=== PATIENT | female | born 2000 | race Hispanic/Latino ===

== ENCOUNTER 2020-11-15 16:29 | Emergency (ER) | payer SELFPAY ==
[~2020-11-15] VITALS: Ht 167.6 cm; Wt 117.9 kg
[2020-11-15 16:31] VITALS: BP 158/119
[2020-11-15] MEDS ORDERED: 0.9%NACL 1000ML 1,000 ML IV ONE (17:00)
[2020-11-15] MEDS ORDERED: ACETAMINOPHEN 500 MG TABLET PO ONE (17:00)
[2020-11-15 17:08] LABS: BASOPHILS % (AUTO) 0.6 % (0.0-5.0); EOSINOPHILS % (AUTO) 3.6 % (0.0-8.0); HEMATOCRIT 39.7 % (36-48); LYMPHOCYTES % (AUTO) 15.1 % (21.0-51.0); MEAN CORPUSCULAR HEMOGLOBIN 28.2 pg (27.0-33.0); MEAN CORPUSCULAR HGB CONC 32.5 g/dL (32.0-36.0); MEAN CORPUSCULAR VOLUME 86.9 fL (80-100); MONOCYTES % (AUTO) 14.7 % (3.0-13.0); NEUTROPHILS % (AUTO) 64.9 % (40.0-77.0); PLATELET COUNT (AUTO) 304 K/uL (130-400); RED BLOOD CELL COUNT(AUTO) 4.57 MIL/uL (4.00-5.50); RED CELL DISTRIBUTION WIDTH 13.4 % (11.0-15.5); WHITE BLOOD COUNT (AUTO) 6.4 K/uL (4.8-10.8)
[2020-11-15 17:16] LABS: CREATININE 0.7 mg/dL (0.5-1.5); POTASSIUM 3.7 mmol/L (3.5-5.1)
[2020-11-15 17:21] LABS: BILIRUBIN,TOTAL 0.2 mg/dL (0.2-1.0); TOTAL PROTEIN, SERUM 7.8 g/dL (6.0-8.3)
[2020-11-15 18:22] VITALS: BP 133/65
[2020-11-15 19:38] VITALS: BP 145/89
[2020-11-15 19:40] LABS: APPEARANCE,URINE Clear (CLEAR); BILIRUBIN,URINE Negative (NEGATIVE); COLOR,URINE Yellow (YELLOW); GLUCOSE, URINE (UA) Negative (NEGATIVE); KETONES,URINE Negative (NEGATIVE); LEUKOCYTE ESTERASE ,URINE Negative (NEGATIVE); NITRATE,URINE Positive (NEGATIVE); OCCULT BLOOD,URINE Small (NEGATIVE); PROTEIN,URINE Negative (NEGATIVE)
[2020-11-15 19:43] LABS: HCG,QUAL RESULT NEGATIVE (NEGATIVE)
[2020-11-15 19:47] LABS: BACTERIA,URINE Few /HPF (None Seen); RBC,URINE 0-1 /HPF (0-1); SQUAMOUS EPITHELIAL CELL,UR Few /HPF (0-2); WBC,URINE 0-1 /HPF (0-1)
[2020-11-15 19:48] LABS: COARSE GRANULAR CASTS,URINE 0-2 /LPF (None Seen)
[2020-11-15] MEDS ORDERED: ACET-2247 PO (20:02)
[2020-11-15] MEDS ORDERED: ALBUHFA IH (20:02)
[2020-11-15] MEDS ORDERED: IVER3TAB PO (20:02)
[2020-11-15] MEDS ORDERED: FLUT1DIS IH (20:02)
== END 2020-11-15 20:58 | disposition home or self-care (01) ==
LOC: EDH 16:29
DX: U07.1 COVID-19 (principal); B34.9 Viral infection, unspecified; Z79.51 Long term (current) use of inhaled steroids; Z79.899 Other long term (current) drug therapy
CPT/HCPCS: 36415; 71045; 80053; 81001; 81025; 84703; 85025; 87088; 87426; 87804 ×2; 96360; 99284; J7030

== ENCOUNTER 2020-12-16 00:46 | Emergency (ER) | payer OTHER, SELFPAY ==
[~2020-12-16] VITALS: Ht 177.8 cm; Wt 98.0 kg
[~2020-12-16 00:46] MED LIST: ACET-2247 PO; ALBUHFA IH; FLUT1DIS IH; IVER3TAB PO
[2020-12-16 01:48] VITALS: BP 141/87
[2020-12-16 04:07] VITALS: BP 125/87
[2020-12-16] MEDS ORDERED: METH4TAB3 PO (04:58)
[2020-12-16] MEDS ORDERED: SOLU-MEDROL 125MG VIAL IVP ONE (05:00)
== END 2020-12-16 05:20 | disposition home or self-care (01) ==
LOC: EDH 00:46
DX: M94.0 Chondrocostal junction syndrome [Tietze] (principal); E66.01 Morbid (severe) obesity due to excess calories; Z68.31 Body mass index [BMI] 31.0-31.9, adult; Z79.899 Other long term (current) drug therapy
CPT/HCPCS: 71045; 81025; 93005; 96374; 99285; J2930

== ENCOUNTER 2021-07-25 05:28 | Emergency (ER) | payer OTHER ==
[~2021-07-25] VITALS: Ht 165.1 cm; Wt 118.4 kg
[~2021-07-25 05:28] MED LIST changes: +METH4TAB3 PO
[2021-07-25 06:00] VITALS: BP 125/63
[2021-07-25 06:01] LABS: APPEARANCE,URINE Clear (CLEAR); BILIRUBIN,URINE Negative (NEGATIVE); COLOR,URINE Yellow (YELLOW); GLUCOSE, URINE (UA) Negative (NEGATIVE); KETONES,URINE Trace mg/dL (NEGATIVE); LEUKOCYTE ESTERASE ,URINE Small (NEGATIVE); NITRATE,URINE Negative (NEGATIVE); OCCULT BLOOD,URINE Moderate (NEGATIVE); PROTEIN,URINE Negative (NEGATIVE)
[2021-07-25 06:10] LABS: BACTERIA,URINE Rare /HPF (None Seen); SQUAMOUS EPITHELIAL CELL,UR Few /HPF (0-2)
== END 2021-07-25 06:39 | disposition home or self-care (01) ==
LOC: EDH 05:28
DX: N92.6 Irregular menstruation, unspecified (principal); R10.31 Right lower quadrant pain; R10.32 Left lower quadrant pain; Z79.51 Long term (current) use of inhaled steroids; Z79.52 Long term (current) use of systemic steroids
CPT/HCPCS: 81001; 81025

== ENCOUNTER 2022-08-23 12:09 | Emergency (ER) | payer OTHER ==
[~2022-08-23] VITALS: Ht 165.1 cm; Wt 113.4 kg
[~2022-08-23 12:09] MED LIST changes: +CEFU500T67 PO; +PHEN-847 PO
[2022-08-23 12:18] VITALS: BP 135/75
[2022-08-23] MEDS ORDERED: LIDOCAINE HCL 1% 20 ML VIAL INJ SCH (12:30)
[2022-08-23 13:04] LABS: BASOPHILS % (AUTO) 0.4 % (0.0-5.0); HEMATOCRIT 34.7 % (36-48); MEAN CORPUSCULAR HEMOGLOBIN 27.9 pg (27.0-33.0); MEAN CORPUSCULAR HGB CONC 33.1 g/dL (32.0-36.0); MEAN CORPUSCULAR VOLUME 84.2 fL (79-99); MONOCYTES % (AUTO) 7.7 % (3.0-13.0); NEUTROPHILS % (AUTO) 73.2 % (40.0-77.0); PLATELET COUNT (AUTO) 371 K/uL (130-400); RED BLOOD CELL COUNT(AUTO) 4.12 MIL/uL (4.00-5.50); RED CELL DISTRIBUTION WIDTH 13.2 % (11.0-15.5); WHITE BLOOD COUNT (AUTO) 15.2 K/uL (4.8-10.8)
[2022-08-23 13:08] LABS: HCG,QUALITATIVE URINE POSITIVE (NEGATIVE)
[2022-08-23 13:10] LABS: APPEARANCE,URINE CLOUDY (CLEAR); BILIRUBIN,URINE NEGATIVE (NEGATIVE); COLOR,URINE YELLOW (YELLOW); GLUCOSE, URINE (UA) NEGATIVE (NEGATIVE); KETONES,URINE 5 mg/dL (NEGATIVE); LEUKOCYTE ESTERASE ,URINE 250 Leu/uL (NEGATIVE); NITRATE,URINE NEGATIVE (NEGATIVE); OCCULT BLOOD,URINE NEGATIVE (NEGATIVE); PH,URINE 5.5 (5.0-8.0); PROTEIN,URINE 30 mg/dL (NEGATIVE); UROBILINOGEN,URINE 0.2 mg/dL (0.2-1.0)
[2022-08-23 13:13] LABS: CREATININE 0.7 mg/dL (0.5-1.5); POTASSIUM 3.9 mmol/L (3.5-5.1)
[2022-08-23 13:15] LABS: BACTERIA,URINE RARE /HPF (None Seen); MUCUS,URINE RARE LPF (None Seen); SQUAMOUS EPITHELIAL CELL,UR MANY /HPF (0-2)
[2022-08-23 13:18] LABS: ALBUMIN 4.1 g/dL (3.5-5.0); TOTAL PROTEIN, SERUM 7.8 g/dL (6.0-8.3)
[2022-08-23] MEDS ORDERED: CEPH500B PO (16:25)
[2022-08-23] MEDS ORDERED: SULF1TAB42 PO (16:25)
[2022-08-23] MEDS ORDERED: CEFTRIAXONE 1G VIAL IM ONE (16:30)
[2022-08-23] MEDS ORDERED: TETANUS/DIPHTHERIA TOXOID [ADULT] 0.5 ML VIAL IM ONE (17:00)
== END 2022-08-23 17:17 | disposition home or self-care (01) ==
LOC: EDH 12:09
DX: L02.211 Cutaneous abscess of abdominal wall (principal); N39.0 Urinary tract infection, site not specified; D72.829 Elevated white blood cell count, unspecified; Z79.899 Other long term (current) drug therapy
CPT/HCPCS: 99284; 80053; 85025; 87076; 87077; 87088; 87186; 81001; 81025; 36415; 90714; 96372; 90471; 87070; J0696

== ENCOUNTER 2022-09-17 21:18 | Emergency (ER) | payer BC, OTHER ==
[~2022-09-17] VITALS: Ht 167.6 cm; Wt 120.2 kg
[~2022-09-17 21:18] MED LIST changes: +CEPH500B PO; +SULF1TAB42 PO
[2022-09-18 00:12] LABS: APPEARANCE,URINE CLEAR (CLEAR); BILIRUBIN,URINE NEGATIVE (NEGATIVE); COLOR,URINE LIGHT-YELLOW (YELLOW); GLUCOSE, URINE (UA) NEGATIVE (NEGATIVE); KETONES,URINE NEGATIVE (NEGATIVE); LEUKOCYTE ESTERASE ,URINE 25 Leu/uL (NEGATIVE); NITRATE,URINE NEGATIVE (NEGATIVE); OCCULT BLOOD,URINE LARGE (NEGATIVE); PROTEIN,URINE 20 mg/dL (NEGATIVE)
[2022-09-18 00:24] LABS: SQUAMOUS EPITHELIAL CELL,UR MOD /HPF (0-2)
[2022-09-18 00:44] LABS: BASOPHILS % (AUTO) 0.3 % (0.0-5.0); EOSINOPHILS % (AUTO) 2.3 % (0.0-8.0); HEMATOCRIT 34.4 % (36-48); LYMPHOCYTES % (AUTO) 28.2 % (21.0-51.0); MEAN CORPUSCULAR HGB CONC 33.7 g/dL (32.0-36.0); MEAN CORPUSCULAR VOLUME 82.9 fL (79-99); MONOCYTES % (AUTO) 5.2 % (3.0-13.0); NEUTROPHILS % (AUTO) 63.5 % (40.0-77.0); PLATELET COUNT (AUTO) 377 K/uL (130-400); RED BLOOD CELL COUNT(AUTO) 4.15 MIL/uL (4.00-5.50); RED CELL DISTRIBUTION WIDTH 13.1 % (11.0-15.5); WHITE BLOOD COUNT (AUTO) 12.6 K/uL (4.8-10.8)
[2022-09-18 00:47] LABS: CREATININE 0.6 mg/dL (0.5-1.5); POTASSIUM 3.5 mmol/L (3.5-5.1)
[2022-09-18 01:13] LABS: ALBUMIN 3.6 g/dL (3.5-5.0); TOTAL PROTEIN, SERUM 7.4 g/dL (6.0-8.3)
[2022-09-18] MEDS: 0.9%NACL 1000ML 1,000 ML IV ONE (02:19)
[2022-09-18] MEDS ORDERED: CEPH500B PO (03:07)
[2022-09-18] MEDS ORDERED: CEFAZOLIN SODIUM 1 GM VIAL IVPB PRN (03:30)
[2022-09-18 03:38] VITALS: BP 124/78
== END 2022-09-18 03:39 | disposition home or self-care (01) ==
LOC: EDH 21:18
DX: O23.41 Unspecified infection of urinary tract in pregnancy, first trimester (principal); O20.0 Threatened abortion; Z3A.08 8 weeks gestation of pregnancy; Z79.51 Long term (current) use of inhaled steroids; Z79.52 Long term (current) use of systemic steroids
CPT/HCPCS: 36415; 76801; 80053; 81001; 84702; 85025; 86900; 86901

== ENCOUNTER 2022-10-01 09:19 | Emergency (ER) | payer BC, MEDICAID ==
[~2022-10-01] VITALS: Ht 167.6 cm; Wt 107.5 kg
[2022-10-01 10:14] LABS: BASOPHILS % (AUTO) 0.4 % (0.0-5.0); EOSINOPHILS % (AUTO) 3.2 % (0.0-8.0); HEMATOCRIT 38.3 % (36-48); MEAN CORPUSCULAR HEMOGLOBIN 27.4 pg (27.0-33.0); MEAN CORPUSCULAR HGB CONC 33.2 g/dL (32.0-36.0); MEAN CORPUSCULAR VOLUME 82.5 fL (79-99); NEUTROPHILS % (AUTO) 61.9 % (40.0-77.0); PLATELET COUNT (AUTO) 383 K/uL (130-400); RED BLOOD CELL COUNT(AUTO) 4.64 MIL/uL (4.00-5.50); RED CELL DISTRIBUTION WIDTH 13.5 % (11.0-15.5); WHITE BLOOD COUNT (AUTO) 10.5 K/uL (4.8-10.8)
[2022-10-01 10:23] LABS: CREATININE 0.6 mg/dL (0.5-1.5)
[2022-10-01 10:48] LABS: ALBUMIN 3.7 g/dL (3.5-5.0); TOTAL PROTEIN, SERUM 7.6 g/dL (6.0-8.3)
[2022-10-01 13:09] VITALS: BP 136/76
== END 2022-10-01 13:13 | disposition home or self-care (01) ==
LOC: EDH 09:19
DX: O20.0 Threatened abortion (principal); Z3A.10 10 weeks gestation of pregnancy; Z79.899 Other long term (current) drug therapy
CPT/HCPCS: 36415; 76801; 80053; 84702; 85025; 86900; 86901

== ENCOUNTER 2023-02-22 11:08 | Observation (INO) | payer BC, MEDICAID ==
[~2023-02-22] VITALS: Ht 167.6 cm; Wt 113.4 kg
[2023-02-22 11:20] VITALS: BP 140/62; PULSE 103; RESP 20
[2023-02-22 12:04] LABS: APPEARANCE,URINE CLEAR (CLEAR); BILIRUBIN,URINE NEGATIVE (NEGATIVE); COLOR,URINE YELLOW (YELLOW); GLUCOSE, URINE (UA) NEGATIVE (NEGATIVE); KETONES,URINE 10 mg/dL (NEGATIVE); LEUKOCYTE ESTERASE ,URINE 75 Leu/uL (NEGATIVE); NITRATE,URINE NEGATIVE (NEGATIVE); OCCULT BLOOD,URINE NEGATIVE (NEGATIVE); PH,URINE 5.5 (5.0-8.0); PROTEIN,URINE 10 mg/dL (NEGATIVE); UROBILINOGEN,URINE 0.2 mg/dL (0.2-1.0)
[2023-02-22 12:07] LABS: ADD UA MICROSCOPIC YES
[2023-02-22 12:16] LABS: BACTERIA,URINE Few /HPF (None Seen)
[2023-02-22] MEDS ORDERED: LACTATED RINGERS 1000ML IV PRN (13:00)
[2023-02-22] MEDS ORDERED: CALCIUM GLUC 1GM/10ML VIAL IV PRN (15:30)
[2023-02-22] MEDS ORDERED: MAGNESIUM 4GM PREMIX 100ML 100 ML IV SCH (15:30)
[2023-02-22] MEDS: CELESTONE SOLUSPAN 6 MG/ML 5ML VIAL IM SCH (15:56)
[2023-02-22] MEDS ORDERED: AMPICILLIN 2GM+NS 100ML IV ONE (16:00)
[2023-02-22] MEDS ORDERED: MAGNESIUM SULFATE 40GM/1000ML 1,000 ML IV PRN (16:30)
[2023-02-22] MEDS ORDERED: ACETAMINOPHEN WITH CODEINE 1 TAB TAB PO PRN (19:30)
[2023-02-22] MEDS ORDERED: AMPICILLIN 1GM+NS 50ML IV ONE (22:00)
[2023-02-22 22:25] LABS: BASOPHILS # (AUTO) 0.01 K/uL (0.00-0.20); BASOPHILS % (AUTO) 0.1 % (0.0-5.0); EOSINOPHILS # (AUTO) 0.01 K/uL (0.00-0.70); EOSINOPHILS % (AUTO) 0.1 % (0.0-8.0); HEMATOCRIT 30.4 % (36-48); LYMPHOCYTES # (AUTO) 1.2 K/uL (1.0-4.8); LYMPHOCYTES % (AUTO) 11.6 % (21.0-51.0); MEAN CORPUSCULAR HGB CONC 34.2 g/dL (32.0-36.0); MEAN CORPUSCULAR VOLUME 81.9 fL (79-99); MONOCYTES # (AUTO) 0.2 K/uL (0.1-1.0); MONOCYTES % (AUTO) 1.8 % (3.0-13.0); NEUTROPHILS % (AUTO) 85.5 % (40.0-77.0); PLATELET COUNT (AUTO) 416 K/uL (130-400); RED BLOOD CELL COUNT(AUTO) 3.71 MIL/uL (4.00-5.50); RED CELL DISTRIBUTION WIDTH 13.2 % (11.0-15.5); WHITE BLOOD COUNT (AUTO) 10.6 K/uL (4.8-10.8)
[2023-02-22 22:41] LABS: CREATININE 0.5 mg/dL (0.5-1.5); POTASSIUM 4.4 mmol/L (3.5-5.1)
[2023-02-22 22:44] LABS: ALBUMIN 3.1 g/dL (3.5-5.0); BILIRUBIN,TOTAL 0.5 mg/dL (0.2-1.0); TOTAL PROTEIN, SERUM 7.5 g/dL (6.0-8.3)
[2023-02-23] MEDS: CELESTONE SOLUSPAN 6 MG/ML 5ML VIAL IM SCH (15:07)
[2023-03-04] MEDS ORDERED: PREN1TAB80 PO (05:54)
[2023-03-06] MEDS ORDERED: IBUP-2077 PO (13:45)
[2023-03-06] MEDS ORDERED: LEVO-70 PO (13:46)
== END 2023-02-23 16:00 | disposition home or self-care (01) ==
LOC: EDH 11:08 → LDH 11:09
PROVIDERS: ADMIT Obstetrics & Gynecology; ATTEND Obstetrics & Gynecology
DX: O26.893 Other specified pregnancy related conditions, third trimester (principal); R10.9 Unspecified abdominal pain; Z3A.31 31 weeks gestation of pregnancy
CPT/HCPCS: 96372 ×2; 96365; 96366; 96368; 96361; 99284; 80053; 85025; 87088; 81001; 81025; 36415; G0378 ×28; J7120 ×2; J0702; J3475 ×2; J0290 ×2; A4600; A4510; A4314; 96360